=== PATIENT | female | born 1970 | race Caucasian/White ===

== ENCOUNTER 2023-08-09 19:26 | Emergency (ER) | payer BC, SELFPAY ==
[2023-08-09 19:41] VITALS: BP 134/91
[2023-08-09 20:05] LABS: Urine Albumin Negative (Neg - Trace); Urine Bilirubin Negative (Negative); Urine Character Clear (Clear); Urine Color Yellow; Urine Glucose Negative (Negative); Urine Ketone Negative (Negative); Urine Leukocyte 2+ (Negative); Urine Nitrite Negative (Negative); Urine Occult Blood Negative (Negative); Urine Urobilinogen Negative (Neg - 1+)
[2023-08-09 20:15] LABS: Urine Squamous Cell 0-2 /LPF (Few)
[2023-08-09 20:16] LABS: Urine Bacteria Few (Negative); Urine Red Blood Cell 0-2 /HPF (0-2)
[2023-08-09 20:20] LABS: % Basophils 0.6 % (0-2); % Eosinophils 3.2 % (0-6); % Immature Granulocytes 0.3 % (0-0.5); % Lymphocytes 49.3 % (20.5-51.1); % Monocytes 4.7 % (1.7-9.3); % Neutrophils 41.9 % (42.2-75.2); Absolute Eosinophils 0.2 10^3/uL (0-0.7); Absolute Lymphocytes 3.2 10^3/uL (1.2-3.4); Absolute Monocytes 0.3 10^3/uL (0.1-0.6); Absolute Neutrophils 2.7 10^3/uL (1.4-6.5); Hematocrit 38.3 % (37.0-47.0); Hemoglobin 13.7 g/dL (12.0-16.0); Mean Corp Hgb Conc. 35.8 g/dL (33.0-37.0); Mean Corpuscular Hgb 32.2 pg (27.0-31.0); Mean Corpuscular Volume 89.9 fL (81.0-99.0); Mean Platelet Volume 9.1 fL (7.4-10.4); Nucleated Red Blood Cells % 0 %; Platelet Count 244 10^3/uL (130-400); Red Blood Cell Count 4.26 10^6/uL (4.20-5.40); Red Cell Dist. Width 11.9 % (11.5-14.5); White Blood Cell Count 6.6 10^3/uL (4.8-10.8)
[2023-08-09 20:39] LABS: ALT (SGPT) 41 U/L (0-35); AST (SGOT) 33 U/L (14-36); Albumin 4.6 g/dl (3.5-5.0); Alkaline Phosphatase 70 U/L (38-126); Blood Urea Nitrogen 14 mg/dl (7-17); Calcium 9.8 mg/dl (8.4-10.2); Carbon Dioxide 28 mmol/L (22-30); Chloride 100 mmol/L (98-107); Glucose 108 mg/dl (70-99); Lipase 129 U/L (23-300); Potassium 3.9 mmol/L (3.5-5.1); Sodium 136 mmol/L (135-145); Total Bilirubin 0.4 mg/dl (0.2-1.3); Total Protein 7.3 g/dl (6.3-8.2); eGFR > 60.00
== END 2023-08-09 22:08 | disposition left against medical advice (07) ==
LOC: EMR 19:26
PROVIDERS: Emergency Medicine; FAMILY PHYSICIAN Family Medicine
DX: R10.10 Upper abdominal pain, unspecified (principal); R11.0 Nausea; R19.7 Diarrhea, unspecified; Z53.21 Procedure and treatment not carried out due to patient leaving prior to being seen by health care provider
CPT/HCPCS: 99281; 76700; 80053; 81003; 81015; 83690; 85025; 87086; 93005

== ENCOUNTER 2023-09-29 06:23 | Day surgery (SDC) | payer BC, SELFPAY ==
[2023-09-29] VITALS (7 sets, daily range): BP systolic 115–134; BP diastolic 68–79; BMI 21.4
[2023-09-29] MEDS: TYLENOL 1000 MG PO (12:10)
[2023-09-29] MEDS: NORMOSOL-R 1000 IV (12:33)
--- NOTE | 2023-09-29 13:12 | W.SUR.PREOP ---
Pre-Operative Surgical Note
-
I have examined this patient prior to the performance of the scheduled procedure.
The patient's condition is unchanged from the time of the current History and
Physical and the patient is able to undergo the scheduled procedure.
[2023-09-29] MEDS: DEMEROL 12.5 MG IV (15:16)
--- NOTE | 2023-09-29 15:23 | SUR.PHASEI ---
patient aroused, confused - no recall of surgery. Easily reoriented, shivers and some pain /. Warm covers on. Anesthesia called for med orders - demerol 12.5mg given IV for shivers and pain with relief.
--- NOTE | 2023-09-29 15:52 | W.IMMPOSTOP ---
Surgical Immed Post Op Note
-
Primary Surgeon: German Cristina MD
Assisting Surgeon: None
Pre-op Diagnosis: Biliary colic
Post-op Diagnosis: Same
Procedure Performed: Laparoscopic cholecystectomy with cholangiogram
Anesthesia Type: General
Specimen / Cultures: Gallbladder and contents
Estimated Blood Loss: 3 cc
Complications: None
Operative Findings: Fairly normal-appearing gallbladder. Critical view of safety obtained prior to a cholangiogram which demonstrated no distal filling defects and normal biliary anatomy.
--- NOTE | 2023-09-29 15:52 | OR.RPT ---
Operative Report
Operative Report
Patient Name: Olivia Aguayo
: 1970
Date of Operation: 09/29/2023
Preoperative Diagnosis: Symptomatic Cholelithiasis
Postoperative Diagnosis: Same
Procedure(s):
Laparoscopic Cholecystectomy with Cholangiogram
Surgeon(s):
Dr. Cristina
Impregnator And Drier Helper(s):
MIGUEL Pelletier
Anesthesia: General
Estimated Blood Loss: 3 cc
Urine Output: None
Drains/Lines/Implants: None
Specimens:
1. Gallbladder and contents
HPI/Surgical Indications:
This is a 52year old female with a history of bilateral mastectomy and MARY flap reconstruction/abdominoplasty who presents with postprandial right upper quadrant abdominal pain. Exam, labs and imaging are consistent with symptomatic cholelithiasis.
Risks/Benefits/Alternatives were discussed at length, and the patient agreed to proceed with surgery.
Findings:
The patient was noted to have a fairly normal-appearing gallbladder. A Critical View of Safety was obtained. Cholangiogram showed no filling defects in the biliary system with the Left, Right Anterior, Right posterior hepatic ducts, CHD, cystic duct
and CBD all identified. There was brisk flow of dye into the duodenum.
Procedure Description:
The patient was brought to the Operating Room and placed in the supine position. IV antibiotics were infused and sequential compression devices were confirmed to be on. Following uneventful induction of general endotracheal anesthesia, an
orogastric tube was placed. The abdomen was prepped and draped in the usual sterile fashion. Due to her prior abdominoplasty with a floated umbilicus, the abdomen was entered using a left subcostal Veress technique which required a single pass
followed by a right upper quadrant periumbilical Optiview trocar. Pneumoperitoneum to 15 mmHg pressure was obtained without difficulty and we confirmed that no injury had occurred during our entry. It did seem that there was air under the omentum
so this was flipped up to confirm no injury to the underlying viscera. The patient was positioned in reverse Trendelenburg and rotated with the right side up slightly. Two, and a 12 mm port in the epigastrium 5mm trocars were then placed along the
right subcostal margin. A locking grasping forceps was placed on the fundus of the gallbladder where it was then retracted cephalad and to the right. Using appropriate grasping instruments, the peritoneum overlying the triangle of Calot was incised.
The cystic duct/gallbladder junction was identified, dissected circumferentially. The cystic artery was identified medially and was dissected circumferentially. A critical view was obtained. Two clips were placed proximally and one distally on
the cystic artery, and the artery was divided. A clip was then placed on the cystic duct/gallbladder junction and an intraoperative cholangiogram performed using fluoroscopy, which showed good flow of dye into the duodenum. There were no intra- or
extrahepatic bile duct filling defects. The biliary anatomy appeared normal. Following completion of the cholangiogram, the catheter was removed. A clip was placed on the cystic duct and the duct was divided. The stump was reinforced with a 0 PDS
Endoloop. The remaining soft tissue attachments of the gallbladder to the liver bed were then divided using electrocautery. There was no spillage of bile or stones. The gallbladder bed was inspected and excellent hemostasis was obtained. The
gallbladder was extracted through the 12 mm trocar site using an endocatch bag. The abdomen was again irrigated and excellent hemostasis was assured. The left upper quadrant was reinspected and the omentum again flipped over to ensure there is no
underlying injury to the viscera in this area. All remaining trocars were then removed and the pneumoperitoneum was evacuated. The 12 mm trocar site was closed using a figure of 8 of 0 PDS. All trocar sites were closed at the skin level using 4-0
Monocryl followed by Dermabond. Overall, the patient tolerated the procedure well and was taken to the Recovery Room postoperatively in stable condition.
I was the attending physician and performed the procedure with assistance from the PA above. The assistance of Karie Cam was required due to the complexity of the procedure. During the procedure they assisted with retraction, resection, and
closure of the wound. I was present for all portions of the case, excluding skin closure.
German Cristina MD
== END 2023-09-29 16:30 | disposition home or self-care (01) ==
LOC: SDS 06:23
PROVIDERS: ATTENDING PHYSICIAN Surgery
DX: K80.20 Calculus of gallbladder without cholecystitis without obstruction (principal)
CPT/HCPCS: 47563; 88304; 74300